=== PATIENT | male | born 1950 | race Caucasian/White ===

== ENCOUNTER 2016-09-04 08:43 | Emergency (ER) | payer MEDICARE, OTHER ==
[~2016-09-04] VITALS: Ht 165.1 cm; Wt 77.3 kg
[~2016-09-04 08:43] MED LIST: CIPR-278 PO; FENO145T PO; LISI10TA7 PO; OMEP20 PO; PARO20TA24 PO; PHEN-853 PO; TAMS0.4C32 PO
[2016-09-04] MEDS ORDERED: CLOP75 PO (08:50)
[2016-09-04] MEDS ORDERED: ASPI81 PO (08:50)
[2016-09-04] MEDS ORDERED: ATOR20TA86 PO (08:50)
[2016-09-04] MEDS ORDERED: AMOXI1255L PO (08:50)
[2016-09-04] MEDS ORDERED: ONDANSETRON HCL 4 MG/2 ML VIAL IVP ONE (09:00)
[2016-09-04] MEDS ORDERED: SODIUM CHLORIDE 0.9% 1,000 ML IV ONE ×2 (09:00→11:00)
[2016-09-04 12:59] VITALS: BP 159/92
== END 2016-09-04 13:15 | disposition home or self-care (01) ==
LOC: EMS 08:49
DX: R11.2 Nausea with vomiting, unspecified (principal); R42 Dizziness and giddiness; F11.10 Opioid abuse, uncomplicated; E78.00 Pure hypercholesterolemia, unspecified; I10 Essential (primary) hypertension; Z79.82 Long term (current) use of aspirin; Z86.73 Personal history of transient ischemic attack (TIA), and cerebral infarction without residual deficits; Z88.2 Allergy status to sulfonamides
CPT/HCPCS: 96361; 96374; 99284; J2405; J7030